=== PATIENT | male | born 1995 | race Caucasian/White ===

== ENCOUNTER 2020-03-17 14:54 | Emergency (ER) | payer BC ==
[~2020-03-17] VITALS: Ht 175.3 cm; Wt 79.4 kg
--- NOTE | 2020-03-17 15:20 | NUR ---
Provider at bedside. RN at bedside. Pt calm, cooperative. +2 pedal pulses bilateral. Pt denies chest pain, denies SOB, lung sounds clear bilaterally.
--- NOTE | 2020-03-17 15:40 | NUR ---
Pt using bedside urinal
--- NOTE | 2020-03-17 16:15 | NUR ---
IV inserted, labs drawn.
[2020-03-17 16:31] LABS: ALANINE AMINOTRANSFERASE 64 U/L (12-78); ALBUMIN 4.1 g/dL (3.4-5.0); ANION GAP 4 mmol/L (5-15); CALCIUM 9.2 mg/dL (8.5-10.1); CHLORIDE 101 mmol/L (98-107); CREATININE 1.33 mg/dL (0.7-1.3)
[2020-03-17 16:34] LABS: ALKALINE PHOSPHATASE 90 U/L (45-117); BILIRUBIN,TOTAL 0.7 mg/dL (0.2-1.0); TOTAL PROTEIN 8.1 g/dL (6.4-8.2)
[2020-03-17 16:37] LABS: BASOPHILS % (AUTO) 0 % (0-1); EOSINOPHILS % (AUTO) 2 % (1-7); LYMPHOCYTES % (AUTO) 20 % (22-44); MEAN CORPUSCULAR HEMOGLOBIN 30.4 pg (27.5-34.5); MEAN CORPUSCULAR HGB CONC 34.9 g/dL (33.2-36.2); MEAN PLATELET VOLUME 7.6 fL (7.4-10.4); MONOCYTES % (AUTO) 7 % (2-9); NEUTROPHILS % (AUTO) 71 % (42-75); PLATELET COUNT 248 x10^3/uL (130-400); RED BLOOD COUNT 5.34 x10^6/uL (4.38-5.82); RED CELL DISTRIBUTION WIDTH 13.1 % (9.4-14.8)
[2020-03-17 16:48] LABS: MD NO
[2020-03-17] MEDS ORDERED: OMNIPAQUE 350 MG/ML, 75ML BOTTLE ONE (16:55)
[2020-03-17 17:15] VITALS: BP 168/81
--- NOTE | 2020-03-17 17:28 | NUR ---
TASK RN: POC IS DC. IV DC'D. PT UP TO DRESS SELF WITH ASSISTANCE OF FRIEND. AWAITING DC INSTRUCTIONS.
--- NOTE | 2020-03-17 18:03 | NUR ---
DC EDUCATION PROVIDED, PT DEMONSTRATES UNDERSTANDING. PT ASSISTED TO WHEELCHAIR. WHEELED TO DC WITH RN AND FRIEND. FRIEND TO TRANSPORT PT HOME.
== END 2020-03-17 18:04 | disposition home or self-care (01) ==
LOC: ED 17:45
DX: I82.442 Acute embolism and thrombosis of left tibial vein (principal); R06.02 Shortness of breath
CPT/HCPCS: 36415; 71275; 80053; 83880; 85025; 93005; 99285; Q9967